=== PATIENT | female | born 1995 | race Caucasian/White ===

== ENCOUNTER 2017-03-01 22:27 | Emergency (ER) | payer BC ==
[~2017-03-01] VITALS: Ht 170.2 cm; Wt 78.2 kg
[2017-03-01 22:29] VITALS: TEMP 36.8; Ht 170.2 cm; Wt 78.2 kg
[2017-03-01] MEDS ORDERED: BCPILLS PO (22:33)
[2017-03-01] MEDS ORDERED: ALUMINUM/MAGNESIUM SUSP 30 ML UDC PO STA (22:39)
[2017-03-01] MEDS ORDERED: DiphenhydrAMINE HCL 50 MG/ML VIAL IV STA (22:39)
[2017-03-01] MEDS ORDERED: LIDOCAINE HCL 2% VISC SOLN 20 ML UDC PO STA (22:39)
[2017-03-01] MEDS ORDERED: METOCLOPRAMIDE HCL INJ 5 MG/ML 2 ML VIAL IV STA (22:39)
[2017-03-01] MEDS ORDERED: SODIUM CHLORIDE 0.9% 1000ML 2,000 ML IV STA (22:39)
[2017-03-01 23:03] VITALS: O2SAT 92
[2017-03-01] MEDS ORDERED: KETOROLAC TROMETHAMINE 30 MG/ML VIAL IV STA (23:06)
[2017-03-01 23:07] LABS: HEMATOCRIT 42.9 % (37-47); MEAN CELL VOLUME 89.7 fL (80-100); MEAN CORPUSCULAR HEMOGLOBIN 30.3 pg (25-34); MEAN CORPUSCULAR HGB CONC 33.8 g/dl (32-36); PLATELET COUNT 289 K/uL (130-400); RED BLOOD COUNT 4.78 M/uL (4.2-5.4)
[2017-03-01 23:12] LABS: MANUAL MICROSCOPIC REQUIRED? NO; REVIEW REQ? YES; URINE APPEARANCE CLEAR (CLEAR); URINE BILIRUBIN NEG (NEG); URINE COLOR DK YELLOW; URINE EPITHELIAL CELL AUTO >30 /lpf (0-5); URINE NITRITE NEG (NEG); UROBILINOGEN NEG (NEG)
[2017-03-01 23:28] LABS: URINE MUCUS PRESENT (NONE PRSENT)
[2017-03-01 23:30] LABS: CALCIUM 9.2 mg/dl (8.5-10.1); CREATININE 0.7 mg/dl (0.60-1.20); POTASSIUM 3.5 mmol/L (3.5-5.1)
[2017-03-01 23:32] LABS: ZZUR CULT IF INDIC CLEAN CATCH YES
[2017-03-01 23:56] LABS: BASO % 0.1 %; BASO ABS # 0.02 K/uL (0-0.2); COMPLETE YES; EOS % 0.1 %; HYPERSEGMENTED POLYS 1+; IG% 0.3 %; LYMPH % 4.8 %; LYMPH ABS # 0.98 K/uL (1.2-3.4); MONO % 5.3 %; NEUT % 89.4 %
--- NOTE | 2017-03-02 00:48 | EMERGENCY ROOM VISIT NOTE ---
History First contact with patient: 22:32 Chief Complaint: VOMITING Stated Complaint: VOMITING,CHILLS,BURNING UPPER ABD Nursing Triage Summary: Triage Notes: pt ambulatory to triage, states "this morning i felt soni sick at work, pushed though it and was okay. 5pm started to get burning pain in my abdomen." pt reports vomiting on drive to hospital and 15x since. denies diarrhea/urinary symptoms. History of Present Illness The patient is a 21 year old female who presents to the Emergency Room with complaints of nausea vomiting and epigastric discomfort for the past several hours. Patient states she woke up feeling slightly nauseous today. Then later in the morning she started vomiting and the pain persisted. Pain currently 5 out of 10. Pain does not radiate. Nothing makes it better or worse. She has a history of reflux but this feels different. No history of similar symptoms in the past. Patient denies blood or black in the vomit. No bad food exposure. No sick contacts. Patient denies chest pain, dyspnea, fever, chills , diarrhea, urinary symptoms, cough, congestion. There is a family history of gallbladder disease. Review of Systems See HPI for pertinent positives & negatives. A total of 10 systems reviewed and were otherwise negative. Past Medical/Surgical History Asthma, GERD, orthopedic surgeries, tonsillectomy Social History Smoking Status: Never Smoker Smokeless Tobacco Use: No Alcohol Use: none Drug Use: none Occupation Status: employed Current/Historical Medications Scheduled Control Pills ( Control Pills), 1 TAB PO DAILY Physical Exam Vital Signs Date Time Temp Pulse Resp B/P (MAP) Pulse Ox O2 Delivery O2 Flow Rate FiO2 03/01/17 23:03 92 Room Air 03/01/17 22:29 36.8 135 18 130/80 92 Room Air Physical Exam VITALS: Vitals are noted on the nurse's note and reviewed by myself. Vital signs mildly tachycardic GENERAL: Pleasant female actively vomiting, in no acute distress, nondiaphoretic , well-developed well-nourished. SKIN: The skin was without rashes, erythema, edema, or bruising. There is no tenting of the skin. Capillary reflex less than 2 seconds. HEAD: Normocephalic atraumatic. EARS: External auditory canals clear, tympanic membranes pearly lopez without erythema or effusion bilaterally. EYES: Pupils equal round and reactive to light and accommodation. Conjunctivae without injection, sclerae without icterus. Extraocular movements intact. NOSE: Patent, turbinates without inflammation or discharge. MOUTH: Mucous membranes mildly dry. Pharynx without erythema or exudate. Uvula midline. Airway patent. Tongue does not deviate. NECK: Supple without nuchal rigidity. No lymphadenopathy. No thyromegaly. Cervical spine is nontender. No JVD. HEART: Regular rate and rhythm without murmurs gallops or rubs. LUNGS: Clear to auscultation bilaterally without wheezes, rales or rhonchi. No dullness to percussion. No retractions or accessory muscle use. ABDOMEN: Positive bowel sounds x 4. Normal tympanic percussion. Soft, tender to palpation epigastric right upper quadrant region, no CVA tenderness, without masses or organomegaly. No guarding or rebound tenderness. MUSCULOSKELETAL: No muscle atrophy, erythema, or edema noted. NEURO: Patient was alert and oriented to person place and time. Normal sensation to light and sharp touch. No focal neurological deficits. Medical Decision & Procedures Laboratory Results 03/01/17 22:51 Red Blood Count 4.78, Mean Corpuscular Volume 89.7, Mean Corpuscular Hemoglobin 30.3, Mean Corpuscular Hemoglobin Concent 33.8, Mean Platelet Volume 10.0, Neutrophils (%) (Auto) 89.4, Lymphocytes (%) (Auto) 4.8, Monocytes (%) (Auto) 5.3, Eosinophils (%) (Auto) 0.1, Basophils (%) (Auto) 0.1, Neutrophils # (Auto) 18.14, Lymphocytes # (Auto) 0.98, Monocytes # (Auto) 1.07, Eosinophils # (Auto) 0.02, Basophils # (Auto) 0.02 03/01/17 22:51 Test 03/01/17 22:51 White Blood Count 20.30 K/uL (4.8-10.8) Red Blood Count 4.78 M/uL (4.2-5.4) Hemoglobin 14.5 g/dL (12.0-16.0) Hematocrit 42.9 % (37-47) Mean Corpuscular Volume 89.7 fL (80-100) Mean Corpuscular Hemoglobin 30.3 pg (25-34) Mean Corpuscular Hemoglobin Concent 33.8 g/dl (32-36) Platelet Count 289 K/uL (130-400) Mean Platelet Volume 10.0 fL (7.4-10.4) Neutrophils (%) (Auto) 89.4 % Lymphocytes (%) (Auto) 4.8 % Monocytes (%) (Auto) 5.3 % Eosinophils (%) (Auto) 0.1 % Basophils (%) (Auto) 0.1 % Neutrophils # (Auto) 18.14 K/uL (1.4-6.5) Lymphocytes # (Auto) 0.98 K/uL (1.2-3.4) Monocytes # (Auto) 1.07 K/uL (0.11-0.59) Eosinophils # (Auto) 0.02 K/uL (0-0.5) Basophils # (Auto) 0.02 K/uL (0-0.2) RDW Standard Deviation 39.6 fL (36.4-46.3) RDW Coefficient of Variation 12.1 % (11.5-14.5) Immature Granulocyte % (Auto) 0.3 % Immature Granulocyte # (Auto) 0.07 K/uL (0.00-0.02) Hypersegmented Polys 1+ Urine Color DK YELLOW Urine Appearance CLEAR (CLEAR) Urine pH 5.0 (4.5-7.5) Urine Specific [place] 1.030 (1.000-1.030) Urine Protein NEG (NEG) Urine Glucose (UA) NEG (NEG) Urine Ketones 2+ (NEG) Urine Occult Blood 1+ (NEG) Urine Nitrite NEG (NEG) Urine Bilirubin NEG (NEG) Urine Urobilinogen NEG (NEG) Urine Leukocyte Esterase TRACE (NEG) Urine WBC (Auto) 5-10 /hpf (0-5) Urine RBC (Auto) 0-4 /hpf (0-4) Urine Hyaline Casts (Auto) 0 /lpf (0-5) Urine Epithelial Cells (Auto) >30 /lpf (0-5) Urine Bacteria (Auto) 1+ (NEG) Urine Mucus PRESENT (NONE PRSENT) Urine Yeast (Auto) PRESENT (NONE PRSENT) Urine Test NEG (NEG) Anion Gap 5.0 mmol/L (3-11) Est Creatinine Clear Calc Drug Dose 134.7 ml/min Estimated GFR () 141.5 Estimated GFR (Non- 122.1 BUN/Creatinine Ratio 15.0 (10-20) Calcium Level 9.2 mg/dl (8.5-10.1) Total Bilirubin 0.5 mg/dl (0.2-1) Direct Bilirubin 0.1 mg/dl (0-0.2) Aspartate Amino Transf (AST/SGOT) 12 U/L (15-37) Alanine Aminotransferase (ALT/SGPT) 31 U/L (12-78) Alkaline Phosphatase 81 U/L (45-117) Total Protein 7.8 gm/dl (6.4-8.2) Albumin 4.3 gm/dl (3.4-5.0) Lipase 175 U/L (73-393) Medications Administered Medications (Trade) Dose Ordered Sig/Casa Route Start Time Stop Time Status Last Admin Dose Admin Lidocaine HCl (Viscous Lidocaine 2% Soln) 10 ml NOW STAT PO 03/01/17 22:39 03/01/17 22:41 DC 03/01/17 22:57 10 ML Al Hydroxide/Mg Hydroxide (Maalox Susp) 30 ml NOW STAT PO 03/01/17 22:39 03/01/17 22:41 DC 03/01/17 22:55 30 ML Metoclopramide HCl (Reglan Inj) 10 mg NOW STAT IV 03/01/17 22:39 03/01/17 22:41 DC 03/01/17 22:57 10 MG Diphenhydramine HCl (Benadryl Inj) 12.5 mg NOW STAT IV 03/01/17 22:39 03/01/17 22:41 DC 03/01/17 22:58 12.5 MG Sodium Chloride 2,000 ml @ 999 mls/hr Q2H1M STAT IV 03/01/17 22:39 03/02/17 00:39 DC 03/01/17 22:54 999 MLS/HR Ketorolac Tromethamine (Toradol Inj) 30 mg NOW STAT IV 03/01/17 23:06 03/01/17 23:07 DC 03/01/17 23:12 30 MG ED Course Prior records/ancillary studies reviewed. Triage Nursing notes reviewed. Additional history obtained from Juanita. The patient's history was concerning for vomiting with epigastric abdominal pain. Differential diagnosis: Etiologies such as gastritis, food borne illness, appendicitis, diverticulitis, PUD, biliary pathology, UTI, pancreatitis, obstruction, mesenteric ischemia, aortic pathology, infections, inflammatory bowel disease, renal colic, as well as others were entertained. Physical examination findings: As above. ER treatment provided: Reglan, Benadryl, GI cocktail, IV fluids, Toradol On reassessment the patient felt better. Diagnostics interpreted by me: The labs revealed leukocytosis, mostly marginalization from vomiting repetitively for the past 6 hours Imaging studies: Ultrasound negative for cholecystitis Exam and history seem consistent with nausea and vomiting. Patient felt much better after being medicated as above. She did not have acute abdomen on exam. She was advised to clear liquid diet today and then progress as tolerated to bland diet tomorrow. She is advised follow-up family care in a few days or here in the ER sooner for abdominal pain, fevers, vomiting, worsening signs or symptoms or as needed. Patient was tolerating fluids. She ambulates without difficulties.By the evaluation outlined above emergent etiologies such as appendicitis, diverticulitis, PUD, biliary pathology, UTI, pancreatitis, obstruction, mesenteric ischemia, aortic pathology, infections, inflammatory bowel disease, renal colic, as well as others were deemed relatively unlikely. The pt informed about the findings as listed above. All questions were answered and pleased with the treatment. Return instructions were outlined and the patient was discharged in stable condition. Outpatient prescription management: Zofran Referral: The patient was referred back to their primary care physician for follow-up in 2 to 3 days for a recheck of the current condition. Case reviewed with my attending Medical Decision As above Medication Reconcilliation Current Medication List: was personally reviewed by me Blood Pressure Screening Patient's blood pressure: Normal blood pressure Impression Primary Impression: Vomiting Additional Impression: Abdominal discomfort, epigastric Departure Information Dispostion Home / Self-Care Condition GOOD Patient Instructions My [facility] Additional Instructions DO NOT drive, drink alcohol, operate machinery, or perform dangerous activities today. You were given medications in the ER that can affect your ability to safely function or operate a vehicle. Zofran(odansetron) tablets 4mg: Take one and allow it to dissolve in your mouth every four to six hours as needed for nausea or vomiting. Acetaminophen(Tylenol) may be used for fever or pain. Use 1000mg every six hours as needed. Avoid using more than 3000mg in a 24 hour period. Rest and drink plenty of fluids as tolerated. Slow sips of water or sports drinks are recommended instead of large amounts all at once. Continue current medications. Once your stomach is settled start with a clear liquid diet (jello, soup broth, etc.) and then advance as tolerated. You should avoid full, heavy meals for about 24 hrs from the time your symptoms resolved. Return to the ER for persistent vomiting, fevers, abdominal pain, chest pains, difficulty breathing, black or bloody stools, worsening of your condition, or as needed. Follow up with your primary physician in 2-3 days for a recheck of your current condition. Problem Qualifiers Primary Impression: Vomiting Vomiting type: unspecified Vomiting Intractability: non-intractable Nausea presence: with nausea Qualified Codes: R11.2 - Nausea with vomiting, unspecified
[2017-03-02] MEDS ORDERED: ONDANSETRON HOME PACK 4MG OD TAB PO ONE (01:00)
[2017-03-02 01:18] VITALS: BP 106/56; PULSE 116; O2SAT 100
--- NOTE | 2017-03-02 05:00 | DIAGNOSTIC IMAGING REPORT ---
GALLBLADDER-ABD LIMITED CLINICAL HISTORY: 21 years-old Female presenting with epigastric pain, ? GB. TECHNIQUE: Real-time grayscale and limited color Doppler ultrasound imaging of the abdomen limited to the right upper quadrant was performed. COMPARISON: None. FINDINGS: Pancreas: Visualized portions of the pancreatic head and body normal. Liver: Normal echogenicity and echotexture. The liver measures 19.1 cm in maximal sagittal dimension. No sonographic evidence of hepatic mass. Main portal vein patent with normal directional flow. Biliary: No intrahepatic biliary ductal dilatation. Common bile duct measures up to 4 mm in diameter. Gallbladder: No evidence of gallstones, gallbladder wall thickening, gallbladder distention, or pericholecystic fluid or inflammatory change. Right kidney: Normal in appearance. No hydronephrosis. Ascites: None. IMPRESSION: 1. No cholelithiasis or cholecystitis. No biliary ductal dilatation. 2. Mild hepatomegaly. Electronically signed by: Kyle Stallworth M.D. 03/02/2017 4:59 AM Dictated Date/Time: 03/02/2017 4:57 AM
== END 2017-03-02 01:19 | disposition home or self-care (01) ==
LOC: C.EDB 22:28 → C.EDA 03-02 01:19
DX: R11.2 Nausea with vomiting, unspecified (principal); R10.13 Epigastric pain; J45.909 Unspecified asthma, uncomplicated; K21.9 Gastro-esophageal reflux disease without esophagitis